=== PATIENT | male | born 1970 | race Caucasian/White ===

== ENCOUNTER 2016-09-05 13:55 | Emergency (ER) | payer OTHER ==
[~2016-09-05] VITALS: Ht 175.3 cm; Wt 86.2 kg
[2016-09-05 13:55] VITALS: BP 00/00
[~2016-09-05 13:55] MED LIST: BUPROPION PO; CLOPIDOGREL75 M1 PO; ESCITALOPRAM10 M1 PO; FUROSEMIDE20 MG PO; HYDRALAZINE HY100 MG PO; ISOSORBIDE MONO30 MG PO; LIPITOR80 MG PO; LOP50 PO; METOPROLOL SUCC50 M1 PO; NIFEDIPINE60 MG PO; NOR10 PO; ZESTRIL5 MG PO
== END 2016-09-05 17:38 | disposition expired ==
LOC: ED 13:55
DX: I46.9 Cardiac arrest, cause unspecified (principal); R11.10 Vomiting, unspecified; M54.2 Cervicalgia; M25.512 Pain in left shoulder; N18.6 End stage renal disease; I25.10 Atherosclerotic heart disease of native coronary artery without angina pectoris; I25.2 Old myocardial infarction; I50.9 Heart failure, unspecified; Z86.73 Personal history of transient ischemic attack (TIA), and cerebral infarction without residual deficits